=== PATIENT | female | born 1935 | race Caucasian/White ===

== ENCOUNTER → 2016-10-22 | Outpatient (REF) | payer MEDICARE, BC, MEDICAID ==
[~2016-10-22] MED LIST: *ANUSOI RE; /WARF25TA PO; ACET65TA PO; ANUSOL PR; ANUSOL TOP; ASPI81TA PO; ASPIRIN PO; ATOR1TAB21 PO; CALCIUM+VIT D PO; COLA100C2 PO; DONETAB5 PO; FERR325T PO; HALD5INJ2 IM; HALD5INJ2 IV; LOSA25TA8 PO; METFORMIN PO; MULTLIQ7 PO; NAME10TA PO; NAME28CA PO; NEXIUM PO; PROP1TAB29 PO; SENNSYP PO; SERO1TAB3 PO; SERT-141 PO; TEMOVATE TOP; TRAM50TA2; TRAM50TA2 OR; TYLE650T25 PO; VITA100072 PO; VYTO10TA5 OR; ZETI10TA PO; ZOCO40TA PO; [UNRECOGNIZED DRUG - OTHER] PO
[2016-10-22 08:30] LABS: BASO # 0.1 K/mm3 (0.0-0.2); EOS # 0.1 K/mm3 (0.0-0.50); EOS % 0.9 % (0.0-3.0); LARGE UNSTAINED CELL # 0.2 K/mm3 (0.0-0.4); LARGE UNSTAINED CELL % 1.6 % (0.0-4.0); LYMPH # 1.5 K/mm3 (1.5-4.5); LYMPH % 13.7 % (24.0-44.0); MEAN CORPUSCULAR HEMOGLOBIN 30.8 pg (27.0-33.0); MEAN CORPUSCULAR VOLUME 99.4 fl (80.0-96.0); MONO # 0.9 K/mm3 (0.0-0.8); MONO % 8.7 % (0.0-5.0); NEUTROPHILS # 7.3 K/mm3 (1.8-7.7); NEUTROPHILS % 74.1 % (36.0-66.0); PLATELET COUNT, AUTOMATED 198 k/mm3 (150-450); RED CELL DISTRIBUTION WIDTH 14.2 % (11.5-14.5); WHITE BLOOD COUNT 9.8 K/mm3 (4.0-10.0)
== END ==
LOC: SKLAB8 07:00
PROVIDERS: ATTEND Internal Medicine
DX: D64.9 Anemia, unspecified (principal); I10 Essential (primary) hypertension

== ENCOUNTER 2016-11-16 16:30 | Emergency (ER) | payer MEDICARE, MEDICAID ==
--- NOTE | 2016-11-16 17:39 | REP ---
Clinical: Acute headache. Comparison: 04/21/2016 . Findings: Age-related atrophy and microvascular ischemic changes are appreciated. The ventricles and sulci are symmetric. Chan-white differentiation is maintained. There is no evidence for acute intracranial hemorrhage, mass/mass effect, pathology or infarction. No extra-axial fluid collection. Calvarium is intact. Paranasal sinuses and mastoid air cells are clear. Impression: Age related atrophy and microvascular ischemic changes. No acute intracranial hemorrhage, infarction, or mass/mass effect. Signed by Jae Juares MD 11/16/2016 05:31 P
[2016-11-16] MEDS ORDERED: NAPROXEN 250 MG TAB As Ordered ONE (18:58)
[2016-11-16] MEDS ORDERED: ACETAMINOPHEN 325 MG TAB As Ordered ONE (18:58)
--- NOTE | 2016-11-16 20:07 | EDDOCDS ---
Nurse's Notes [facility] Name: Belen Rucker Age: 81 yrs Sex: Female : 1935 Arrival Date: 11/16/2016 Time: 16:30 Bed I Private MD: Eagle Lopez Diagnosis: Headache Presentation: 11/16 16:54 Presenting complaint: pt sent over from [facility] for a CT head without contrast and an EKG. dsf pt c/o a headache this afternoon Tylenol and tramadol given without any relief. pt has a HX of head bleed. This patient has no additional risk factors. Adult Sepsis Screening: The patient does not have new or worsening altered mentation. Patient's respiratory rate is less than 22. Systolic blood pressure is greater than 100. Patient has a qSOFA score of 0- Negative Sepsis Screen. Suicide/Homicide risk assessment- the patient denies having any suicidal and/or homicidal ideations and does not present with any other emotional, behavioral or mental health complaints. Status: Patient is not a services coordinator or dependent. Transition of care: patient was received from [facility]. 16:54 Acuity: PHUC Level 4 dsf 16:54 Method Of Arrival: Wheelchair dsf 16:59 Presenting complaint: pt has dementia and is unable to tell this resume writer r about her MARQUEZ, dsf pt is rambling on in room with caretaker. Triage Assessment: 16:54 Headache History: Other unable to assess if this is a change in previous MARQUEZ. General: dsf Appears distressed, Behavior is crying. Pain: Location: head. Neurological: Level of Consciousness is awake, confused. Cardiovascular: No deficits noted. Respiratory: No deficits noted. Derm: Skin is pink, warm & dry. 18:08 Pain: Unable to use pain scale. [email or web address] Historical: - Allergies: butorphanol tartrate; ESTROGENS; Lorazepam; Ramipril; - Home Meds: 1. tramadol 50 mg Oral tab 1 tab every 8 hours as needed (Last dose: Unknown) 2. trazodone 50 mg Oral tab 1 tab nightly (Last dose: 11/15/2016 21:20) 3. Vitamin D Oral 1,000 unit daily (Last dose: 11/16/2016 07:46) 4. Depakote 125 mg Oral TbEC 1 tab once daily (Last dose: 11/16/2016 07:46) 5. Depakote 250 mg Oral TbEC 1 tab nightly (Last dose: 11/15/2016 21:20) 6. escitalopram oxalate 10 mg oral tab 1 tab once daily (Last dose: 11/16/2016 07:46) 7. acetaminophen 325 mg Oral tab 2 tabs twice a day for Pain Control (Last dose: 11/16/2016 13:20) 8. acetaminophen 650 mg Rectal supp 1 suppository daily as needed for pain or elevated pain (Last dose: Unknown) 9. Milk of Magnesia 2400 mg/10 ml Oral 10 mL once daily as needed for constipation (Last dose: Unknown) 10. Vitamin B-12 1,000 mcg Oral tab 1000 mcg daily (Last dose: 11/16/2016 07:46) 11. losartan 25 mg oral tab 1 tab once daily (Last dose: 11/16/2016 07:46) 12. Colace 100 mg oral cap 1 cap once daily (Last dose: 11/16/2016 07:46) 13. Multiple Vitamins oral tab 1 tab daily (Last dose: 11/16/2016 07:46) - PMHx: Anxiety; Dementia; brain bleed; Osteoarthritis; Hypertension; Auditory/Visual Hallucinations; - PSHx: Hip Arthroplasty, Right; Carpal Tunnel Repair- Left; Hysterectomy; Bladder suspension; - Social history: Smoking status: Patient states was never smoker of tobacco. No barriers to communication noted, The patient speaks fluent Vietnamese, Speaks appropriately for age. - Family history: Not pertinent. - : The pt / caregiver states he / she is not on anticoagulants. Home medication list is obtained from the facility MAR. - Exposure Risk Screening:: None identified. Screenin:05 Screening information is obtained from prior medical records. Fall risk: At risk due to dsf prior history of falls, The following interventions are performed due to a positive Fall Risk Screen: Fall Risk is added to Special Handling on the patient Summary Screen. A Fall Risk Bracelet was applied to the patient. Side Rails are placed in the up position. A Call Spence is given with instruction to call for help when getting out of bed. Fall Alert bracelet is placed on the patient. Assistance ADL's: Requires assistance with meal preparation, this assistance is provided by residence staff, bathing, assistance is provided by residence staff, dressing, assistance is provided by residence staff, toileting, assistance is provided by residence staff, ambulation, assistance is provided by residence staff, housework, assistance is provided by residence staff, medication administration, assistance is provided by residence staff. Abuse/DV Screen: The patient / caregiver reports he/she is: not in a situation that causes fear, pain or injury. Nutritional screening: No deficits noted. home support is adequate. 18:58 Advance Directives: Currently, there is no health care proxy. dsf Assessment: 17:00 General: see triage nursing assessment . dsf 17:58 General: Appears in no apparent distress, Behavior is crying. Pain: Location: head. dsf Neurological: Level of Consciousness is awake, confused. Respiratory: Airway is patent Respiratory effort is even, unlabored, Respiratory pattern is regular, symmetrical. Derm: Skin is pink, warm & dry. 18:58 General: Appears in no apparent distress. Neurological: Level of Consciousness is dsf awake, confused. Cardiovascular: Capillary refill < 3 seconds. Respiratory: Airway is patent Respiratory effort is even, unlabored, Respiratory pattern is regular, symmetrical. Derm: Skin is pink, warm & dry. 20:01 Adult Sepsis Screening: The patient does not have new or worsening altered mentation. dsf Patient's respiratory rate is less than 22. Systolic blood pressure is greater than 100. Patient has a qSOFA score of 0- Negative Sepsis Screen. General: Appears in no apparent distress, Behavior is agitated. Neurological: Level of Consciousness is awake, confused. Cardiovascular: Capillary refill < 3 seconds. Respiratory: Airway is patent Respiratory effort is even, unlabored, Respiratory pattern is regular, symmetrical. Derm: Skin is pink, warm & dry. 20:04 General: pt agitates and will not let staff take VS . dsf Vital Signs: 16:32 BP 106 / 49; Pulse 86; Resp 18; Temp 97.9(O); Pulse Ox 97% on R/A; Weight 68.95 kg (R); ct3 Height 6 ft. 0 in. (182.88 cm) (R); 16:32 Body Mass Index 20.62 (68.95 kg, 182.88 cm) ct3 Vitals: 16:32 Log In Time: November 16, 2016 at 16:30. ct3 ED Course: 16:32 Patient visited by Malena Panchal PCA. ct3 16:32 Eagle Lopez MD is Private Physician. ct3 16:32 Patient moved to Waiting ct3 16:35 Patient moved to Pre RCE ct3 16:51 Aspen Galan,RN is Primary Nurse. dsf 16:51 Brittani Frederick, DORA is Primary Nurse. dsf 16:51 Patient moved to I dsf 16:56 Triage Initiated dsf 17:27 [facility] Payment Agreement was scanned into [employer] and attached to record. zo 17:58 Patient visited by Bere Sampson RN. dsf 17:58 Juliet Perez FNP is PHCP. le 18:02 CT Head Without Contrast Returned. EDMS 18:17 Patient visited by Juliet Perez FNP. le 18:17 Patient visited by Juliet Perez FNP. le 18:58 The patient / caregiver is instructed regarding the plan of care and ED course. dsf 18:58 EKG done. (by ED staff). Reviewed by Juliet MATA. ajs 18:58 No IV's were initiated during this patient's visit. No procedures done that require dsf assistance. 18:59 Patient visited by Pearl Mcgovern. ajs 19:58 Eagle Lopez MD is Referral Physician. le Administered Medications: 19:02 Drug: Naproxen 500 mg [naproxen 250 mg tablet (2 tabs)] Route: PO; ja5 19:03 Drug: Acetaminophen 975 mg [acetaminophen 325 mg tablet (3 tabs)] Route: PO; ja5 Order Results: Radiology Order: CT Head Without Contrast Test: CT Head Without Contrast REASON FOR EXAMINATION: headache; Clinical: Acute headache.; ; Comparison: 04/21/2016 .; ; Findings:; Age-related atrophy and microvascular ischemic changes are appreciated. The; ventricles and sulci are symmetric. Chan-white differentiation is maintained.; There is no evidence for acute intracranial hemorrhage, mass/mass effect,; pathology or infarction. No extra-axial fluid collection. Calvarium is intact.; Paranasal sinuses and mastoid air cells are clear.; ; Impression:; Age related atrophy and microvascular ischemic changes.; No acute intracranial hemorrhage, infarction, or mass/mass effect.; ; ; Signed by; Jae Juares MD 11/16/2016 05:31 P; Outcome: 18:58 Discharge Assessment: Patient awake, alert and oriented x 3. No cognitive and/or dsf functional deficits noted. Patient verbalized understanding of disposition instructions. patient administered narcotics - no. The following High Risk Discharge criteria are identified: None. Discharged to jail. Report called to Alyson nurse on 8 th floor [facility]. Condition: stable. Discharge instructions given to jail, Instructed on discharge instructions, follow up and referral plans. Demonstrated understanding of instructions, Pt was receptive of discharge instructions/ teaching. CT Study completed. Property sent home with patient. 19:58 Discharge ordered by Provider. le 20:06 Patient left the ED. dsf Signatures: Dispatcher [employer] EDMS Tracy Springer Lisa, TARGET TRIMMER TARGET TRIMMER Brittani Parks, RN RN [email or web address] Malena Panchal, ESTIMATOR PRINTING ESTIMATOR PRINTING ct3 Bere SampsonRN RN dsPearl Williamson Jessica,RN RN ja5 Corrections: (The following items were deleted from the chart) 16:34 16:32 BP 106 / 49; Pulse 86bpm; Resp 18bpm; Pulse Ox 97% RA; Temp 97.9F Oral; ct3 ct3 16:35 16:32 BP 106 / 49; Pulse 86bpm; Resp 18bpm; Pulse Ox 97% RA; Temp 97.9F Oral; 68.95 kg ct3 Reported; ct3 MTDD
--- NOTE | 2016-11-16 20:07 | EDDOCDS ---
Physician Documentation [facility] Name: Belen Rucker Age: 81 yrs Sex: Female : 1935 Arrival Date: 11/16/2016 Time: 16:30 Bed I Private MD: Eagle Lopez Disposition: 11/16/16 19:58 Discharged to Home/Self Care. Impression: Headache. - Condition is Stable. - Discharge Instructions: General Headache Without Cause. - Medication Reconciliation, Local Pharmacy Hours form. - Follow up: Eagle Lopez MD; When: As needed; Reason: Recheck today's complaints, Continuance of care. - Problem is new. - Symptoms are resolved. - Notes: Keep hydrated Return to the ED for any further concerns Historical: - Allergies: butorphanol tartrate; ESTROGENS; Lorazepam; Ramipril; - Home Meds: 1. tramadol 50 mg Oral tab 1 tab every 8 hours as needed (Last dose: Unknown) 2. trazodone 50 mg Oral tab 1 tab nightly (Last dose: 11/15/2016 21:20) 3. Vitamin D Oral 1,000 unit daily (Last dose: 11/16/2016 07:46) 4. Depakote 125 mg Oral TbEC 1 tab once daily (Last dose: 11/16/2016 07:46) 5. Depakote 250 mg Oral TbEC 1 tab nightly (Last dose: 11/15/2016 21:20) 6. escitalopram oxalate 10 mg oral tab 1 tab once daily (Last dose: 11/16/2016 07:46) 7. acetaminophen 325 mg Oral tab 2 tabs twice a day for Pain Control (Last dose: 11/16/2016 13:20) 8. acetaminophen 650 mg Rectal supp 1 suppository daily as needed for pain or elevated pain (Last dose: Unknown) 9. Milk of Magnesia 2400 mg/10 ml Oral 10 mL once daily as needed for constipation (Last dose: Unknown) 10. Vitamin B-12 1,000 mcg Oral tab 1000 mcg daily (Last dose: 11/16/2016 07:46) 11. losartan 25 mg oral tab 1 tab once daily (Last dose: 11/16/2016 07:46) 12. Colace 100 mg oral cap 1 cap once daily (Last dose: 11/16/2016 07:46) 13. Multiple Vitamins oral tab 1 tab daily (Last dose: 11/16/2016 07:46) - PMHx: Anxiety; Dementia; brain bleed; Osteoarthritis; Hypertension; Auditory/Visual Hallucinations; - PSHx: Hip Arthroplasty, Right; Carpal Tunnel Repair- Left; Hysterectomy; Bladder suspension; - Social history: Smoking status: Patient states was never smoker of tobacco. No barriers to communication noted, The patient speaks fluent Occitan, Speaks appropriately for age. - Family history: Not pertinent. - : The pt / caregiver states he / she is not on anticoagulants. Home medication list is obtained from the facility DEC. - Exposure Risk Screening:: None identified. Vital Signs: 11/16 16:32 BP 106 / 49; Pulse 86; Resp 18; Temp 97.9(O); Pulse Ox 97% on R/A; Weight 68.95 kg / ct3 152.01 lbs (R); Height 6 ft. 0 in. (182.88 cm) (R); 16:32 Body Mass Index 20.62 (68.95 kg, 182.88 cm) ct3 MDM: 17:15 CT Head Without Contrast Ordered. EDMS 17:15 ECG WITH READING ER PHYS+CARDIAG ordered. EDMS 17:27 [facility] Payment Agreement was scanned into [employer] and attached to record. zo 17:59 Misc. Nursing Order ordered. le 18:54 Acetaminophen Tablet 975 mg PO once ordered. le 18:54 Financial registration complete. zo 18:55 Naproxen 500 mg PO once; administer with food or milk ordered. le Administered Medications: 19:02 Drug: Naproxen 500 mg [naproxen 250 mg tablet (2 tabs)] Route: PO; ja5 19:03 Drug: Acetaminophen 975 mg [acetaminophen 325 mg tablet (3 tabs)] Route: PO; ja5 Signatures: Dispatcher [employer] EDMS Tracy Springer Lisa, ESPERANZA MUFFLE WORKER Brittani Parks RN RN Bere Montaño RN RN dsf Anderson, Jessica RN ja5 The chart was reviewed and I authenticate all verbal orders and agree with the evaluation and treatment provided.Attachments: 17:27 [facility] Payment Agreement zo MTDD
--- NOTE | 2016-11-17 08:09 | ECGEPIP ---
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
--- NOTE | 2016-11-18 21:07 | EDDOCDS ---
Physician Documentation [facility] Name: Belen Rucker Age: 81 yrs Sex: Female : 1935 Arrival Date: 11/16/2016 Time: 16:30 Bed I Private MD: Eagle Lopez Disposition: 11/16/16 19:58 Discharged to Home/Self Care. Impression: Headache. - Condition is Stable. - Discharge Instructions: General Headache Without Cause. - Medication Reconciliation, Local Pharmacy Hours form. - Follow up: Eagle Lopez MD; When: As needed; Reason: Recheck today's complaints, Continuance of care. - Problem is new. - Symptoms are resolved. - Notes: Keep hydrated Return to the ED for any further concerns Historical: - Allergies: butorphanol tartrate; ESTROGENS; Lorazepam; Ramipril; - Home Meds: 1. tramadol 50 mg Oral tab 1 tab every 8 hours as needed (Last dose: Unknown) 2. trazodone 50 mg Oral tab 1 tab nightly (Last dose: 11/15/2016 21:20) 3. Vitamin D Oral 1,000 unit daily (Last dose: 11/16/2016 07:46) 4. Depakote 125 mg Oral TbEC 1 tab once daily (Last dose: 11/16/2016 07:46) 5. Depakote 250 mg Oral TbEC 1 tab nightly (Last dose: 11/15/2016 21:20) 6. escitalopram oxalate 10 mg oral tab 1 tab once daily (Last dose: 11/16/2016 07:46) 7. acetaminophen 325 mg Oral tab 2 tabs twice a day for Pain Control (Last dose: 11/16/2016 13:20) 8. acetaminophen 650 mg Rectal supp 1 suppository daily as needed for pain or elevated pain (Last dose: Unknown) 9. Milk of Magnesia 2400 mg/10 ml Oral 10 mL once daily as needed for constipation (Last dose: Unknown) 10. Vitamin B-12 1,000 mcg Oral tab 1000 mcg daily (Last dose: 11/16/2016 07:46) 11. losartan 25 mg oral tab 1 tab once daily (Last dose: 11/16/2016 07:46) 12. Colace 100 mg oral cap 1 cap once daily (Last dose: 11/16/2016 07:46) 13. Multiple Vitamins oral tab 1 tab daily (Last dose: 11/16/2016 07:46) - PMHx: Anxiety; Dementia; brain bleed; Osteoarthritis; Hypertension; Auditory/Visual Hallucinations; - PSHx: Hip Arthroplasty, Right; Carpal Tunnel Repair- Left; Hysterectomy; Bladder suspension; - Social history: Smoking status: Patient states was never smoker of tobacco. No barriers to communication noted, The patient speaks fluent Sinhala, Speaks appropriately for age. - Family history: Not pertinent. - : The pt / caregiver states he / she is not on anticoagulants. Home medication list is obtained from the facility DEC. - Exposure Risk Screening:: None identified. Vital Signs: 11/16 16:32 BP 106 / 49; Pulse 86; Resp 18; Temp 97.9(O); Pulse Ox 97% on R/A; Weight 68.95 kg / ct3 152.01 lbs (R); Height 6 ft. 0 in. (182.88 cm) (R); 16:32 Body Mass Index 20.62 (68.95 kg, 182.88 cm) ct3 MDM: 17:15 CT Head Without Contrast Ordered. EDMS 17:15 ECG WITH READING ER PHYS+CARDIAG ordered. EDMS 17:27 [facility] Payment Agreement was scanned into [employer] and attached to record. zo 17:59 Misc. Nursing Order ordered. le 18:54 Acetaminophen Tablet 975 mg PO once ordered. le 18:54 Financial registration complete. zo 18:55 Naproxen 500 mg PO once; administer with food or milk ordered. le 11/17 10:38 T-Sheet-- Draft Copy was scanned into [employer] and attached to record. gb 10:39 ECG/EKG was scanned into [employer] and attached to record. gb Administered Medications: 11/16 19:02 Drug: Naproxen 500 mg [naproxen 250 mg tablet (2 tabs)] Route: PO; ja5 19:03 Drug: Acetaminophen 975 mg [acetaminophen 325 mg tablet (3 tabs)] Route: PO; ja5 Signatures: Dispatcher [employer] EDMS Donya Earl, Mathew Reg gb Gian, Artieann Juliet Wayne, Brittani Stuton RN RN jcBere Young RN RN dsf Anderson, Jessica RN ja5 The chart was reviewed and I authenticate all verbal orders and agree with the evaluation and treatment provided.Attachments: 17:27 [facility] Payment Agreement zo 11/17 10:38 T-Sheet-- Draft Copy gb 10:39 ECG/EKG gb Chart Complete MTDD
--- NOTE | 2016-11-18 21:07 | EDDOCDS ---
Nurse's Notes [facility] Name: Chepe Zepeda Age: 81 yrs Sex: Female : 1935 Arrival Date: 11/16/2016 Time: 16:30 Bed I Private MD: Eagle Lopez Diagnosis: Headache Presentation: 11/16 16:54 Presenting complaint: pt sent over from [facility] for a CT head without contrast and an EKG. dsf pt c/o a headache this afternoon Tylenol and tramadol given without any relief. pt has a HX of head bleed. This patient has no additional risk factors. Adult Sepsis Screening: The patient does not have new or worsening altered mentation. Patient's respiratory rate is less than 22. Systolic blood pressure is greater than 100. Patient has a qSOFA score of 0- Negative Sepsis Screen. Suicide/Homicide risk assessment- the patient denies having any suicidal and/or homicidal ideations and does not present with any other emotional, behavioral or mental health complaints. Status: Patient is not a service center coordinator or dependent. Transition of care: patient was received from [facility]. 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 Triage Assessment: 16:54 Headache History: Other unable to assess if this is a change in previous MARQUEZ. General: dsf Appears distressed, Behavior is crying. Pain: Location: head. Neurological: Level of Consciousness is awake, confused. Cardiovascular: No deficits noted. Respiratory: No deficits noted. Derm: Skin is pink, warm & dry. 18:08 Pain: Unable to use pain scale. [email or web address] Historical: - Allergies: butorphanol tartrate; ESTROGENS; Lorazepam; Ramipril; - Home Meds: 1. tramadol 50 mg Oral tab 1 tab every 8 hours as needed (Last dose: Unknown) 2. trazodone 50 mg Oral tab 1 tab nightly (Last dose: 11/15/2016 21:20) 3. Vitamin D Oral 1,000 unit daily (Last dose: 11/16/2016 07:46) 4. Depakote 125 mg Oral TbEC 1 tab once daily (Last dose: 11/16/2016 07:46) 5. Depakote 250 mg Oral TbEC 1 tab nightly (Last dose: 11/15/2016 21:20) 6. escitalopram oxalate 10 mg oral tab 1 tab once daily (Last dose: 11/16/2016 07:46) 7. acetaminophen 325 mg Oral tab 2 tabs twice a day for Pain Control (Last dose: 11/16/2016 13:20) 8. acetaminophen 650 mg Rectal supp 1 suppository daily as needed for pain or elevated pain (Last dose: Unknown) 9. Milk of Magnesia 2400 mg/10 ml Oral 10 mL once daily as needed for constipation (Last dose: Unknown) 10. Vitamin B-12 1,000 mcg Oral tab 1000 mcg daily (Last dose: 11/16/2016 07:46) 11. losartan 25 mg oral tab 1 tab once daily (Last dose: 11/16/2016 07:46) 12. Colace 100 mg oral cap 1 cap once daily (Last dose: 11/16/2016 07:46) 13. Multiple Vitamins oral tab 1 tab daily (Last dose: 11/16/2016 07:46) - PMHx: Anxiety; Dementia; brain bleed; Osteoarthritis; Hypertension; Auditory/Visual Hallucinations; - PSHx: Hip Arthroplasty, Right; Carpal Tunnel Repair- Left; Hysterectomy; Bladder suspension; - Social history: Smoking status: Patient states was never smoker of tobacco. No barriers to communication noted, The patient speaks fluent Serbian, Speaks appropriately for age. - Family history: Not pertinent. - : The pt / caregiver states he / she is not on anticoagulants. Home medication list is obtained from the facility MAR. - Exposure Risk Screening:: None identified. Screenin:05 Screening information is obtained from prior medical records. Fall risk: At risk due to dsf prior history of falls, The following interventions are performed due to a positive Fall Risk Screen: Fall Risk is added to Special Handling on the patient Summary Screen. A Fall Risk Bracelet was applied to the patient. Side Rails are placed in the up position. A Call Spence is given with instruction to call for help when getting out of bed. Fall Alert bracelet is placed on the patient. Assistance ADL's: Requires assistance with meal preparation, this assistance is provided by residence staff, bathing, assistance is provided by residence staff, dressing, assistance is provided by residence staff, toileting, assistance is provided by residence staff, ambulation, assistance is provided by residence staff, housework, assistance is provided by residence staff, medication administration, assistance is provided by residence staff. Abuse/DV Screen: The patient / caregiver reports he/she is: not in a situation that causes fear, pain or injury. Nutritional screening: No deficits noted. home support is adequate. 18:58 Advance Directives: Currently, there is no health care proxy. dsf Assessment: 17:00 General: see triage nursing assessment . dsf 17:58 General: Appears in no apparent distress, Behavior is crying. Pain: Location: head. dsf Neurological: Level of Consciousness is awake, confused. Respiratory: Airway is patent Respiratory effort is even, unlabored, Respiratory pattern is regular, symmetrical. Derm: Skin is pink, warm & dry. 18:58 General: Appears in no apparent distress. Neurological: Level of Consciousness is dsf awake, confused. Cardiovascular: Capillary refill < 3 seconds. Respiratory: Airway is patent Respiratory effort is even, unlabored, Respiratory pattern is regular, symmetrical. Derm: Skin is pink, warm & dry. 20:01 Adult Sepsis Screening: The patient does not have new or worsening altered mentation. dsf Patient's respiratory rate is less than 22. Systolic blood pressure is greater than 100. Patient has a qSOFA score of 0- Negative Sepsis Screen. General: Appears in no apparent distress, Behavior is agitated. Neurological: Level of Consciousness is awake, confused. Cardiovascular: Capillary refill < 3 seconds. Respiratory: Airway is patent Respiratory effort is even, unlabored, Respiratory pattern is regular, symmetrical. Derm: Skin is pink, warm & dry. 20:04 General: pt agitates and will not let staff take VS . dsf Vital Signs: 16:32 BP 106 / 49; Pulse 86; Resp 18; Temp 97.9(O); Pulse Ox 97% on R/A; Weight 68.95 kg (R); ct3 Height 6 ft. 0 in. (182.88 cm) (R); 16:32 Body Mass Index 20.62 (68.95 kg, 182.88 cm) ct3 Vitals: 16:32 Log In Time: November 16, 2016 at 16:30. ct3 ED Course: 16:32 Patient visited by Malena Panchal PCA. ct3 16:32 Eagle Lopez MD is Private Physician. ct3 16:32 Patient moved to Waiting ct3 16:35 Patient moved to Pre RCE ct3 16:51 Aspen Galan,RN is Primary Nurse. dsf 16:51 Brittani Frederick, DORA is Primary Nurse. dsf 16:51 Patient moved to I dsf 16:56 Triage Initiated dsf 17:27 [facility] Payment Agreement was scanned into [employer] and attached to record. zo 17:58 Patient visited by Bere Sampson RN. dsf 17:58 Juliet Perez FNP is PHCP. le 18:02 CT Head Without Contrast Returned. EDMS 18:17 Patient visited by Juliet Perez FNP. le 18:17 Patient visited by Juliet Perez FNP. le 18:58 The patient / caregiver is instructed regarding the plan of care and ED course. dsf 18:58 EKG done. (by ED staff). Reviewed by Juliet MATA. ajs 18:58 No IV's were initiated during this patient's visit. No procedures done that require dsf assistance. 18:59 Patient visited by Pearl Mcgovern. ajs 19:58 Eagle Lopez MD is Referral Physician. le 14 08:40 EKG-ADULT Returned. EDMS 10:38 T-Sheet-- Draft Copy was scanned into [employer] and attached to record. gb 10:39 ECG/EKG was scanned into [employer] and attached to record. gb Administered Medications: 11/16 19:02 Drug: Naproxen 500 mg [naproxen 250 mg tablet (2 tabs)] Route: PO; ja5 19:03 Drug: Acetaminophen 975 mg [acetaminophen 325 mg tablet (3 tabs)] Route: PO; ja5 Order Results: Radiology Order: CT Head Without Contrast Test: CT Head Without Contrast REASON FOR EXAMINATION: headache; Clinical: Acute headache.; ; Comparison: 04/21/2016 .; ; Findings:; Age-related atrophy and microvascular ischemic changes are appreciated. The; ventricles and sulci are symmetric. Chan-white differentiation is maintained.; There is no evidence for acute intracranial hemorrhage, mass/mass effect,; pathology or infarction. No extra-axial fluid collection. 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 No cognitive and/or dsf functional deficits noted. Patient verbalized understanding of disposition instructions. patient administered narcotics - no. The following High Risk Discharge criteria are identified: None. Discharged to half-way. Report called to Alyson nurse on 8 th floor [facility]. Condition: stable. Discharge instructions given to half-way, Instructed on discharge instructions, follow up and referral plans. Demonstrated understanding of instructions, Pt was receptive of discharge instructions/ teaching. CT Study completed. Property sent home with patient. 19:58 Discharge ordered by Provider. le 20:06 Patient left the ED. dsf Signatures: Dispatcher [employer] EDMS Donya Earl, Tracy De Los Santos Lisa, CLINICAL PSYCHOLOGIST CLINICAL PSYCHOLOGIST Brittani Parks, RN RN jc4 Malena Panchal, DISTRIBUTION DESIGNER DISTRIBUTION DESIGNER ct3 Bere SampsonRN RN dsf Pearl Mcgovern Jessica,RN RN ja5 Corrections: (The following items were deleted from the chart) 16:34 16:32 BP 106 / 49; Pulse 86bpm; Resp 18bpm; Pulse Ox 97% RA; Temp 97.9F Oral; ct3 ct3 16:35 16:32 BP 106 / 49; Pulse 86bpm; Resp 18bpm; Pulse Ox 97% RA; Temp 97.9F Oral; 68.95 kg ct3 Reported; ct3 Chart Complete MTDD
--- NOTE | 2016-11-18 21:07 | EDDOCDS ---
Physician Documentation [facility] Name: Belen Rucker Age: 81 yrs Sex: Female : 1935 Arrival Date: 11/16/2016 Time: 16:30 Bed I Private MD: Eagle Lopez Disposition: 11/16/16 19:58 Discharged to Home/Self Care. Impression: Headache. - Condition is Stable. - Discharge Instructions: General Headache Without Cause. - Medication Reconciliation, Local Pharmacy Hours form. - Follow up: Eagle Lopez MD; When: As needed; Reason: Recheck today's complaints, Continuance of care. - Problem is new. - Symptoms are resolved. - Notes: Keep hydrated Return to the ED for any further concerns Historical: - Allergies: butorphanol tartrate; ESTROGENS; Lorazepam; Ramipril; - Home Meds: 1. tramadol 50 mg Oral tab 1 tab every 8 hours as needed (Last dose: Unknown) 2. trazodone 50 mg Oral tab 1 tab nightly (Last dose: 11/15/2016 21:20) 3. Vitamin D Oral 1,000 unit daily (Last dose: 11/16/2016 07:46) 4. Depakote 125 mg Oral TbEC 1 tab once daily (Last dose: 11/16/2016 07:46) 5. Depakote 250 mg Oral TbEC 1 tab nightly (Last dose: 11/15/2016 21:20) 6. escitalopram oxalate 10 mg oral tab 1 tab once daily (Last dose: 11/16/2016 07:46) 7. acetaminophen 325 mg Oral tab 2 tabs twice a day for Pain Control (Last dose: 11/16/2016 13:20) 8. acetaminophen 650 mg Rectal supp 1 suppository daily as needed for pain or elevated pain (Last dose: Unknown) 9. Milk of Magnesia 2400 mg/10 ml Oral 10 mL once daily as needed for constipation (Last dose: Unknown) 10. Vitamin B-12 1,000 mcg Oral tab 1000 mcg daily (Last dose: 11/16/2016 07:46) 11. losartan 25 mg oral tab 1 tab once daily (Last dose: 11/16/2016 07:46) 12. Colace 100 mg oral cap 1 cap once daily (Last dose: 11/16/2016 07:46) 13. Multiple Vitamins oral tab 1 tab daily (Last dose: 11/16/2016 07:46) - PMHx: Anxiety; Dementia; brain bleed; Osteoarthritis; Hypertension; Auditory/Visual Hallucinations; - PSHx: Hip Arthroplasty, Right; Carpal Tunnel Repair- Left; Hysterectomy; Bladder suspension; - Social history: Smoking status: Patient states was never smoker of tobacco. No barriers to communication noted, The patient speaks fluent Azeri, Speaks appropriately for age. - Family history: Not pertinent. - : The pt / caregiver states he / she is not on anticoagulants. Home medication list is obtained from the facility DEC. - Exposure Risk Screening:: None identified. Vital Signs: 11/16 16:32 BP 106 / 49; Pulse 86; Resp 18; Temp 97.9(O); Pulse Ox 97% on R/A; Weight 68.95 kg / ct3 152.01 lbs (R); Height 6 ft. 0 in. (182.88 cm) (R); 16:32 Body Mass Index 20.62 (68.95 kg, 182.88 cm) ct3 MDM: 17:15 CT Head Without Contrast Ordered. EDMS 17:15 ECG WITH READING ER PHYS+CARDIAG ordered. EDMS 17:27 [facility] Payment Agreement was scanned into [employer] and attached to record. zo 17:59 Misc. Nursing Order ordered. le 18:54 Acetaminophen Tablet 975 mg PO once ordered. le 18:54 Financial registration complete. zo 18:55 Naproxen 500 mg PO once; administer with food or milk ordered. le 11/17 10:38 T-Sheet-- Draft Copy was scanned into [employer] and attached to record. gb 10:39 ECG/EKG was scanned into [employer] and attached to record. gb Administered Medications: 11/16 19:02 Drug: Naproxen 500 mg [naproxen 250 mg tablet (2 tabs)] Route: PO; ja5 19:03 Drug: Acetaminophen 975 mg [acetaminophen 325 mg tablet (3 tabs)] Route: PO; ja5 Signatures: Dispatcher [employer] EDMS Donya Earl, Mathew Reg gb Gian, Artieann Juliet Wayne, Brittani Sutton RN RN jcBere Young RN RN dsf Anderson, Jessica RN ja5 The chart was reviewed and I authenticate all verbal orders and agree with the evaluation and treatment provided.Attachments: 17:27 [facility] Payment Agreement zo 11/17 10:38 T-Sheet-- Draft Copy gb 10:39 ECG/EKG gb Chart Complete MTDD
== END 2016-11-16 20:06 | disposition home or self-care (01) ==
LOC: M ED 16:30
DX: R51 Headache (principal); I10 Essential (primary) hypertension; F41.9 Anxiety disorder, unspecified; F03.90 Unspecified dementia, unspecified severity, without behavioral disturbance, psychotic disturbance, mood disturbance, and anxiety; M19.90 Unspecified osteoarthritis, unspecified site; R44.0 Auditory hallucinations; R44.1 Visual hallucinations; Z79.899 Other long term (current) drug therapy; Z88.5 Allergy status to narcotic agent; Z88.8 Allergy status to other drugs, medicaments and biological substances

== ENCOUNTER → 2016-11-25 | Outpatient (REF) | payer MEDICARE, MEDICAID | LOC: M LAB 01:21 | PROVIDERS: ATTEND Internal Medicine | DX: I95.9 Hypotension, unspecified (principal) ==

== ENCOUNTER → 2016-11-27 | Outpatient (REF) | payer MEDICARE, MEDICAID ==
[2016-11-27 16:13] LABS: CALCIUM LEVEL 8.8 MG/DL (8.8-10.2); CREATININE FOR GFR 1.02 MG/DL (0.55-1.02); GLOMERULAR FILTRATION RATE 55.4 (>32); MAGNESIUM LEVEL 2.4 MG/DL (1.8-2.4); POTASSIUM SERUM 4.9 MEQ/L (3.5-5.1)
== END ==
LOC: SKLAB8 08:00
PROVIDERS: ATTEND Internal Medicine
DX: I10 Essential (primary) hypertension (principal)

== ENCOUNTER → 2016-12-01 | Outpatient (REF) | payer MEDICARE, MEDICAID ==
[~2016-12-01] MED LIST changes: -SERT-141 PO; +SERT50TA PO
--- NOTE | 2016-12-01 22:14 | ECGEPIP ---
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
== END ==
LOC: SKLAB8 08:00
PROVIDERS: ATTEND Internal Medicine
DX: I10 Essential (primary) hypertension (principal); D64.9 Anemia, unspecified

== ENCOUNTER → 2016-12-08 | Outpatient (REF) | payer MEDICARE, MEDICAID ==
--- NOTE | 2016-12-08 16:56 | ECGEPIP ---
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
== END ==
LOC: SKLAB8 08:00
PROVIDERS: ATTEND Internal Medicine
DX: I10 Essential (primary) hypertension (principal)

== ENCOUNTER → 2016-12-09 | Outpatient (REF) | payer MEDICARE, MEDICAID | LOC: SKLAB8 08:00 | PROVIDERS: ATTEND Internal Medicine | DX: Z11.59 Encounter for screening for other viral diseases (principal) ==

== ENCOUNTER → 2016-12-17 | Outpatient (REF) | payer MEDICARE, MEDICAID ==
[2016-12-17 10:51] LABS: BASO % 0.6 % (0.0-1.0); EOS # 0.1 K/mm3 (0.0-0.50); EOS % 1.1 % (0.0-3.0); LARGE UNSTAINED CELL # 0.1 K/mm3 (0.0-0.4); LARGE UNSTAINED CELL % 1.8 % (0.0-4.0); LYMPH # 1.8 K/mm3 (1.5-4.5); LYMPH % 23.3 % (24.0-44.0); MEAN CORPUSCULAR HEMOGLOBIN 31.8 pg (27.0-33.0); MEAN CORPUSCULAR HGB CONC 32.5 g/dl (32.0-36.5); MEAN CORPUSCULAR VOLUME 97.7 fl (80.0-96.0); MONO # 0.5 K/mm3 (0.0-0.8); MONO % 7.3 % (0.0-5.0); NEUTROPHILS # 4.7 K/mm3 (1.8-7.7); NEUTROPHILS % 65.9 % (36.0-66.0); PLATELET COUNT, AUTOMATED 275 k/mm3 (150-450); RED CELL DISTRIBUTION WIDTH 12.9 % (11.5-14.5); WHITE BLOOD COUNT 7.1 K/mm3 (4.0-10.0)
== END ==
LOC: SKLAB8 08:00
PROVIDERS: ATTEND Internal Medicine
DX: I10 Essential (primary) hypertension (principal)

== ENCOUNTER → 2017-01-21 | Outpatient (REF) | payer MEDICARE, MEDICAID ==
[2017-01-21 08:31] LABS: BASO % 0.8 % (0.0-1.0); EOS # 0.1 K/mm3 (0.0-0.50); EOS % 1.7 % (0.0-3.0); LARGE UNSTAINED CELL # 0.2 K/mm3 (0.0-0.4); LARGE UNSTAINED CELL % 2.7 % (0.0-4.0); LYMPH # 1.7 K/mm3 (1.5-4.5); LYMPH % 28.1 % (24.0-44.0); MEAN CORPUSCULAR HEMOGLOBIN 31.2 pg (27.0-33.0); MEAN CORPUSCULAR HGB CONC 31.7 g/dl (32.0-36.5); MEAN CORPUSCULAR VOLUME 98.4 fl (80.0-96.0); MONO # 0.5 K/mm3 (0.0-0.8); MONO % 9.1 % (0.0-5.0); NEUTROPHILS # 3.1 K/mm3 (1.8-7.7); NEUTROPHILS % 57.6 % (36.0-66.0); PLATELET COUNT, AUTOMATED 229 k/mm3 (150-450); WHITE BLOOD COUNT 5.4 K/mm3 (4.0-10.0)
== END ==
LOC: SKLAB8 07:00
PROVIDERS: ATTEND Internal Medicine
DX: D64.9 Anemia, unspecified (principal); I10 Essential (primary) hypertension

== ENCOUNTER → 2017-02-18 | Outpatient (REF) | payer MEDICARE, MEDICAID ==
[2017-02-18 09:07] LABS: BASO % 0.6 % (0.0-1.0); EOS # 0.1 K/mm3 (0.0-0.50); EOS % 1.4 % (0.0-3.0); LARGE UNSTAINED CELL # 0.1 K/mm3 (0.0-0.4); LARGE UNSTAINED CELL % 2.2 % (0.0-4.0); LYMPH # 1.6 K/mm3 (1.5-4.5); LYMPH % 23.7 % (24.0-44.0); MEAN CORPUSCULAR HGB CONC 32.5 g/dl (32.0-36.5); MEAN CORPUSCULAR VOLUME 98.5 fl (80.0-96.0); MONO # 0.5 K/mm3 (0.0-0.8); MONO % 8.5 % (0.0-5.0); NEUTROPHILS # 3.9 K/mm3 (1.8-7.7); NEUTROPHILS % 63.5 % (36.0-66.0); PLATELET COUNT, AUTOMATED 222 k/mm3 (150-450); RED CELL DISTRIBUTION WIDTH 13.2 % (11.5-14.5); WHITE BLOOD COUNT 6.1 K/mm3 (4.0-10.0)
== END ==
LOC: SKLAB8 08:00
PROVIDERS: ATTEND Internal Medicine
DX: I10 Essential (primary) hypertension (principal); D64.9 Anemia, unspecified

== ENCOUNTER → 2017-03-18 | Outpatient (REF) | payer MEDICARE, MEDICAID ==
[2017-03-18 10:31] LABS: BASO % 0.7 % (0.0-1.0); EOS # 0.1 K/mm3 (0.0-0.50); LARGE UNSTAINED CELL # 0.1 K/mm3 (0.0-0.4); LARGE UNSTAINED CELL % 1.7 % (0.0-4.0); LYMPH # 1.4 K/mm3 (1.5-4.5); MEAN CORPUSCULAR HEMOGLOBIN 32.1 pg (27.0-33.0); MEAN CORPUSCULAR HGB CONC 32.5 g/dl (32.0-36.5); MEAN CORPUSCULAR VOLUME 98.6 fl (80.0-96.0); MONO # 0.6 K/mm3 (0.0-0.8); MONO % 9.2 % (0.0-5.0); NEUTROPHILS # 4.2 K/mm3 (1.8-7.7); NEUTROPHILS % 66.4 % (36.0-66.0); PLATELET COUNT, AUTOMATED 261 k/mm3 (150-450); RED CELL DISTRIBUTION WIDTH 13.3 % (11.5-14.5); WHITE BLOOD COUNT 6.4 K/mm3 (4.0-10.0)
== END ==
LOC: SKLAB8 07:00
PROVIDERS: ATTEND Internal Medicine
DX: D64.9 Anemia, unspecified (principal)

== ENCOUNTER → 2017-04-22 | Outpatient (REF) | payer MEDICARE, MEDICAID ==
[2017-04-22 08:15] LABS: BASO % 0.5 % (0.0-1.0); EOS # 0.2 K/mm3 (0.0-0.50); EOS % 3.1 % (0.0-3.0); LARGE UNSTAINED CELL # 0.2 K/mm3 (0.0-0.4); LARGE UNSTAINED CELL % 3.3 % (0.0-4.0); LYMPH # 1.7 K/mm3 (1.5-4.5); LYMPH % 30.2 % (24.0-44.0); MEAN CORPUSCULAR HEMOGLOBIN 32.3 pg (27.0-33.0); MEAN CORPUSCULAR HGB CONC 32.7 g/dl (32.0-36.5); MEAN CORPUSCULAR VOLUME 98.8 fl (80.0-96.0); MONO # 0.6 K/mm3 (0.0-0.8); MONO % 10.7 % (0.0-5.0); NEUTROPHILS # 2.7 K/mm3 (1.8-7.7); NEUTROPHILS % 52.1 % (36.0-66.0); PLATELET COUNT, AUTOMATED 207 k/mm3 (150-450); RED CELL DISTRIBUTION WIDTH 12.9 % (11.5-14.5); WHITE BLOOD COUNT 5.1 K/mm3 (4.0-10.0)
== END ==
LOC: SKLAB8 04-22 07:00
PROVIDERS: ATTEND Internal Medicine
DX: F91.9 Conduct disorder, unspecified (principal); F22 Delusional disorders

== ENCOUNTER → 2017-05-20 | Outpatient (REF) | payer MEDICARE, MEDICAID ==
[2017-05-20 09:29] LABS: ANION GAP 10 MEQ/L (8-16); BLOOD UREA NITROGEN 18 MG/DL (7-18); CALCIUM LEVEL 9.5 MG/DL (8.8-10.2); CARBON DIOXIDE LEVEL 27 MEQ/L (21-32); CHLORIDE LEVEL 106 MEQ/L (98-107); CREATININE FOR GFR 0.74 MG/DL (0.55-1.02); GLOMERULAR FILTRATION RATE > 60.0 (>32); GLUCOSE, FASTING 100 MG/DL (83-110); POTASSIUM SERUM 4.6 MEQ/L (3.5-5.1); SODIUM LEVEL 143 MEQ/L (136-145)
== END ==
LOC: SKLAB8 07:00
PROVIDERS: ATTEND Internal Medicine
DX: I10 Essential (primary) hypertension (principal)

== ENCOUNTER → 2017-06-28 | Outpatient (REF) | payer MEDICARE, MEDICAID ==
[2017-06-28 21:33] LABS: CALCIUM OXALATE CRYSTALS SMALL
== END ==
LOC: SKLAB8 08:00
PROVIDERS: ATTEND Internal Medicine
DX: R10.819 Abdominal tenderness, unspecified site (principal)

== ENCOUNTER → 2017-07-26 | Outpatient (REF) | payer MEDICARE, MEDICAID ==
--- NOTE | 2017-07-26 15:19 | REP ---
AP view of the pelvis: Single view. History: Groin pain on the left. Comparison study May 25, 2016. Findings: The right hip arthroplasty is seen in place. There is moderate left hip osteoarthritis with joint space narrowing, sclerosis and osteophyte formation superiorly. Femoral head is smooth and rounded. Periarticular soft tissues are unremarkable. There is an artifact projecting lateral to the iliac crest on the left. Visualized bowel gas pattern is unremarkable. Impression: Moderate left hip osteoarthritis. Some diffuse osteopenia. Right hip arthroplasty. Signed by Robert Alvarado MD 07/26/2017 05:04 P
== END ==
LOC: SKLAB8 13:12
PROVIDERS: ATTEND Internal Medicine
DX: R10.30 Lower abdominal pain, unspecified (principal); M16.12 Unilateral primary osteoarthritis, left hip; M85.859 Other specified disorders of bone density and structure, unspecified thigh; Z96.9 Presence of functional implant, unspecified

== ENCOUNTER → 2017-08-11 | Outpatient (REF) | payer MEDICARE, MEDICAID | LOC: SKLAB8 08:00 | PROVIDERS: ATTEND Internal Medicine | DX: R41.82 Altered mental status, unspecified (principal) ==

== ENCOUNTER → 2017-08-19 | Outpatient (REF) | payer MEDICARE, MEDICAID ==
[2017-08-19 09:26] LABS: ANION GAP 4 MEQ/L (8-16); BLOOD UREA NITROGEN 23 MG/DL (7-18); CALCIUM LEVEL 9.9 MG/DL (8.8-10.2); CARBON DIOXIDE LEVEL 32 MEQ/L (21-32); CHLORIDE LEVEL 104 MEQ/L (98-107); CREATININE FOR GFR 0.76 MG/DL (0.55-1.02); GLOMERULAR FILTRATION RATE > 60.0 (>32); GLUCOSE, FASTING 105 MG/DL (83-110); POTASSIUM SERUM 3.9 MEQ/L (3.5-5.1); SODIUM LEVEL 140 MEQ/L (136-145)
== END ==
LOC: SKLAB8 07:00
PROVIDERS: ATTEND Internal Medicine
DX: F03.91 Unspecified dementia, unspecified severity, with behavioral disturbance (principal)

== ENCOUNTER → 2017-09-23 | Outpatient (REF) | payer MEDICARE, MEDICAID ==
[2017-09-23 10:04] LABS: ALBUMIN 3.2 GM/DL (3.2-5.2); ALBUMIN/GLOBULIN RATIO 0.97 (1.00-1.93); ALKALINE PHOSPHATASE 94 U/L (45-117); ALT/SGPT 14 U/L (12-78); ANION GAP 8 MEQ/L (8-16); AST/SGOT 13 U/L (7-37); BILIRUBIN,TOTAL 0.4 MG/DL (0.2-1.0); BLOOD UREA NITROGEN 19 MG/DL (7-18); CALCIUM LEVEL 9.1 MG/DL (8.8-10.2); CARBON DIOXIDE LEVEL 30 MEQ/L (21-32); CHLORIDE LEVEL 104 MEQ/L (98-107); CREATININE FOR GFR 0.71 MG/DL (0.55-1.02); GLOMERULAR FILTRATION RATE > 60.0 (>32); GLUCOSE, FASTING 164 MG/DL (83-110); POTASSIUM SERUM 4.1 MEQ/L (3.5-5.1); SODIUM LEVEL 142 MEQ/L (136-145); TOTAL PROTEIN 6.5 GM/DL (6.4-8.2)
== END ==
LOC: SKLAB8 07:00
PROVIDERS: ATTEND Internal Medicine
DX: R41.82 Altered mental status, unspecified (principal)

== ENCOUNTER → 2017-11-05 | Outpatient (REF) | payer MEDICARE, MEDICAID | LOC: SKLAB8 08:00 | DX: M16.12 Unilateral primary osteoarthritis, left hip (principal) | CPT/HCPCS: 73502 ==

== ENCOUNTER → 2017-11-18 | Outpatient (REF) | payer MEDICARE, MEDICAID ==
[2017-11-18 09:49] LABS: ANION GAP 7 MEQ/L (8-16); BLOOD UREA NITROGEN 27 MG/DL (7-18); CALCIUM LEVEL 9.2 MG/DL (8.8-10.2); CARBON DIOXIDE LEVEL 29 MEQ/L (21-32); CHLORIDE LEVEL 107 MEQ/L (98-107); GLOMERULAR FILTRATION RATE > 60.0 (>32); GLUCOSE, FASTING 104 MG/DL (70-100); POTASSIUM SERUM 4.2 MEQ/L (3.5-5.1); SODIUM LEVEL 143 MEQ/L (136-145)
== END ==
LOC: SKLAB8 07:00
DX: I10 Essential (primary) hypertension (principal)
CPT/HCPCS: 36415

== ENCOUNTER → 2018-01-15 | Outpatient (REF) | payer MEDICARE, MEDICAID | LOC: M RAD 12:46 | DX: M17.12 Unilateral primary osteoarthritis, left knee (principal); R26.9 Unspecified abnormalities of gait and mobility | CPT/HCPCS: 73552 ==

== ENCOUNTER → 2018-04-21 | Outpatient (REF) | payer MEDICARE, MEDICAID ==
[2018-04-21 08:11] LABS: HEMATOCRIT 29.6 % (36.0-47.0); HEMOGLOBIN 9.7 g/dl (12.0-15.5); MEAN CORPUSCULAR HEMOGLOBIN 31.2 pg (27.0-33.0); MEAN CORPUSCULAR HGB CONC 32.8 g/dl (32.0-36.5); MEAN CORPUSCULAR VOLUME 95.2 fl (80.0-96.0); PLATELET COUNT, AUTOMATED 265 10^3/uL (150-450); RED BLOOD COUNT 3.11 10^6/uL (4.00-5.40); RED CELL DISTRIBUTION WIDTH 12.8 % (11.5-14.5); WHITE BLOOD COUNT 6.7 10^3/uL (4.0-10.0)
== END ==
LOC: SKLAB8 07:00
DX: I10 Essential (primary) hypertension (principal)
CPT/HCPCS: 36415

== ENCOUNTER → 2018-04-22 | Outpatient (REF) | payer MEDICARE, MEDICAID | LOC: SKLAB8 08:00 | DX: Z12.11 Encounter for screening for malignant neoplasm of colon (principal) | CPT/HCPCS: 82270 ==

== ENCOUNTER → 2018-04-28 | Outpatient (REF) | payer MEDICARE, MEDICAID ==
[2018-04-28 08:31] LABS: HEMATOCRIT 32.2 % (36.0-47.0); HEMOGLOBIN 10.4 g/dl (12.0-15.5); MEAN CORPUSCULAR HEMOGLOBIN 31.1 pg (27.0-33.0); MEAN CORPUSCULAR HGB CONC 32.3 g/dl (32.0-36.5); MEAN CORPUSCULAR VOLUME 96.4 fl (80.0-96.0); PLATELET COUNT, AUTOMATED 260 10^3/uL (150-450); RED BLOOD COUNT 3.34 10^6/uL (4.00-5.40); RED CELL DISTRIBUTION WIDTH 12.8 % (11.5-14.5); WHITE BLOOD COUNT 7.8 10^3/uL (4.0-10.0)
[2018-04-28 08:53] LABS: IRON (FE) 40 UG/DL (50-170)
== END ==
LOC: SKLAB8 08:00
DX: I10 Essential (primary) hypertension (principal); D64.9 Anemia, unspecified
CPT/HCPCS: 83540

== ENCOUNTER → 2018-05-19 | Outpatient (REF) | payer MEDICARE, MEDICAID ==
[2018-05-19 09:20] LABS: ANION GAP 7 MEQ/L (8-16); BLOOD UREA NITROGEN 39 MG/DL (7-18); CALCIUM LEVEL 9.8 MG/DL (8.8-10.2); CARBON DIOXIDE LEVEL 29 MEQ/L (21-32); CHLORIDE LEVEL 110 MEQ/L (98-107); CREATININE FOR GFR 0.77 MG/DL (0.55-1.30); GLOMERULAR FILTRATION RATE > 60.0 (>32); GLUCOSE, FASTING 82 MG/DL (70-100); POTASSIUM SERUM 3.8 MEQ/L (3.5-5.1); SODIUM LEVEL 146 MEQ/L (136-145)
== END ==
LOC: SKLAB8 08:00
DX: I10 Essential (primary) hypertension (principal)
CPT/HCPCS: 36415

== ENCOUNTER → 2018-09-22 | Outpatient (REF) | payer MEDICARE, MEDICAID ==
[~2018-09-22] MED LIST changes: +ASPI81CH40 PO; -ASPI81TA PO; +LOSA25TA33 PO; -LOSA25TA8 PO; -PROP1TAB29 PO; +PROP20TA72 PO
[2018-09-22 08:08] LABS: ALBUMIN 2.9 GM/DL (3.2-5.2); ALT/SGPT 16 U/L (12-78); BILIRUBIN,TOTAL 0.2 MG/DL (0.2-1.0); BLOOD UREA NITROGEN 28 MG/DL (7-18); CALCIUM LEVEL 9.5 MG/DL (8.8-10.2); CARBON DIOXIDE LEVEL 29 MEQ/L (21-32); CHLORIDE LEVEL 105 MEQ/L (98-107); CREATININE FOR GFR 0.64 MG/DL (0.55-1.30); GLOMERULAR FILTRATION RATE > 60.0 (>32); GLUCOSE, FASTING 91 MG/DL (70-100); POTASSIUM SERUM 4.3 MEQ/L (3.5-5.1); SODIUM LEVEL 141 MEQ/L (136-145); TOTAL PROTEIN 5.8 GM/DL (6.4-8.2)
== END ==
LOC: SKLAB8 07:00
PROVIDERS: ATTEND Internal Medicine
DX: F03.90 Unspecified dementia, unspecified severity, without behavioral disturbance, psychotic disturbance, mood disturbance, and anxiety (principal); I10 Essential (primary) hypertension

== ENCOUNTER → 2018-11-06 | Outpatient (REF) | payer MEDICARE, MEDICAID ==
[~2018-11-06] MED LIST changes: -/WARF25TA PO; +ASPI81CH36 PO; -ASPI81CH40 PO; +COUM1TAB18 PO; +LOSA25TA14 PO; -LOSA25TA33 PO; +SERT-141 PO; -SERT50TA PO; +VITA100018 PO; -VITA100072 PO
[2018-11-14 08:06] LABS: HEMATOCRIT 32.9 % (36.0-47.0); HEMOGLOBIN 10.6 g/dl (12.0-15.5); MEAN CORPUSCULAR HEMOGLOBIN 31.4 pg (27.0-33.0); MEAN CORPUSCULAR HGB CONC 32.2 g/dl (32.0-36.5); MEAN CORPUSCULAR VOLUME 97.3 fl (80.0-96.0); PLATELET COUNT, AUTOMATED 277 10^3/uL (150-450); RED BLOOD COUNT 3.38 10^6/uL (4.00-5.40); WHITE BLOOD COUNT 7.6 10^3/uL (4.0-10.0)
== END ==
LOC: SKLAB8 09:00
PROVIDERS: ATTEND Internal Medicine
DX: D64.9 Anemia, unspecified (principal)

== ENCOUNTER → 2019-04-20 | Outpatient (REF) | payer MEDICARE, MEDICAID ==
[2019-04-20 08:04] LABS: HEMATOCRIT 35.2 % (36.0-47.0); HEMOGLOBIN 11.3 g/dl (12.0-15.5); MEAN CORPUSCULAR HEMOGLOBIN 31.2 pg (27.0-33.0); MEAN CORPUSCULAR HGB CONC 32.1 g/dl (32.0-36.5); MEAN CORPUSCULAR VOLUME 97.2 fl (80.0-96.0); PLATELET COUNT, AUTOMATED 304 10^3/uL (150-450); RED BLOOD COUNT 3.62 10^6/uL (4.00-5.40); WHITE BLOOD COUNT 9.7 10^3/uL (4.0-10.0)
== END ==
LOC: SKLAB8 07:00
PROVIDERS: ATTEND Internal Medicine
DX: I10 Essential (primary) hypertension (principal)

== ENCOUNTER → 2019-04-27 | Outpatient (REF) | payer MEDICARE, MEDICAID | LOC: SKLAB8 07:00 | PROVIDERS: ATTEND Internal Medicine | DX: F03.91 Unspecified dementia, unspecified severity, with behavioral disturbance (principal); I10 Essential (primary) hypertension; Z79.899 Other long term (current) drug therapy ==

== ENCOUNTER → 2019-05-18 | Outpatient (REF) | payer MEDICARE, MEDICAID ==
[~2019-05-18] MED LIST changes: +ASPI81CH32 PO; -ASPI81CH36 PO; +BACT800T5 PO
[2019-05-18 10:16] LABS: BLOOD UREA NITROGEN 23 MG/DL (7-18); CALCIUM LEVEL 9.9 MG/DL (8.8-10.2); CARBON DIOXIDE LEVEL 30 MEQ/L (21-32); CHLORIDE LEVEL 107 MEQ/L (98-107); GLOMERULAR FILTRATION RATE > 60.0 (>32); GLUCOSE, FASTING 92 MG/DL (70-100); SODIUM LEVEL 142 MEQ/L (136-145)
== END ==
LOC: SKLAB8 07:00
PROVIDERS: ATTEND Internal Medicine
DX: I10 Essential (primary) hypertension (principal)

== ENCOUNTER 2019-06-05 16:12 | Emergency (ER) | payer MEDICARE, MEDICAID ==
[~2019-06-05] VITALS: Ht 182.9 cm; Wt 129.6 kg
[~2019-06-05 16:12] MED LIST changes: -BACT800T5 PO
[2019-06-05] MEDS ORDERED: LIDOCAINE 2% 5ML JELLY UROJET TOP ONE (16:45)
--- NOTE | 2019-06-05 17:02 | REP ---
Clinical: Facial droop. Comparison: 11/16/2016 Findings: Age-related atrophy and microvascular ischemic changes are appreciated. The ventricles and sulci are symmetric. Chan-white differentiation is maintained. There is no evidence for acute intracranial hemorrhage, mass/mass effect, pathology or infarction. No extra-axial fluid collection. Calvarium is intact. Paranasal sinuses and mastoid air cells are clear. Impression: Age related atrophy and microvascular ischemic changes. No acute intracranial hemorrhage, infarction, or mass/mass effect. Electronically Signed by Jae Juares MD 06/05/2019 04:53 P
--- NOTE | 2019-06-05 17:20 | REP ---
Clinical: Acute cerebrovascular accident . Comparison: 07/07/2017 . Findings: The mediastinum and cardiac silhouette are stable and within normal limits for portable technique. The lung alan demonstrate chronic-appearing interstitial changes without acute consolidation, effusion, or pneumothorax. Skeletal structures demonstrate osteopenia and degenerative change. Impression: No acute cardiopulmonary process appreciated. Electronically Signed by Jae Juares MD 06/05/2019 05:12 P
[2019-06-05 17:37] LABS: BASO # 0.1 10^3/uL (0.0-0.2); BASO % 0.8 % (0.0-1.0); EOS # 0.4 10^3/uL (0.0-0.5); EOS % 4.2 % (0.0-3.0); HEMATOCRIT 34.1 % (36.0-47.0); LYMPH # 2.2 10^3/uL (1.5-5.0); LYMPH % 25.8 % (24.0-44.0); MEAN CORPUSCULAR HEMOGLOBIN 32.3 pg (27.0-33.0); MEAN CORPUSCULAR HGB CONC 32.3 g/dl (32.0-36.5); MONO # 1.4 10^3/uL (0.0-0.8); MONO % 16.4 % (0.0-5.0); NEUTROPHILS # 4.6 10^3/uL (1.5-8.5); NEUTROPHILS % 52.6 % (36.0-66.0); PLATELET COUNT, AUTOMATED 320 10^3/uL (150-450); RED BLOOD COUNT 3.41 10^6/uL (4.00-5.40); WHITE BLOOD COUNT 8.7 10^3/uL (4.0-10.0)
[2019-06-05 17:53] LABS: INR 1.08; PROTHROMBIN TIME 13.7 SECONDS (11.8-14.0)
[2019-06-05 18:11] LABS: ALT/SGPT 18 U/L (12-78); BILIRUBIN,DIRECT < 0.1 MG/DL (0.0-0.2); BILIRUBIN,TOTAL 0.2 MG/DL (0.2-1.0); BLOOD UREA NITROGEN 32 MG/DL (7-18); CALCIUM LEVEL 9.9 MG/DL (8.8-10.2); CARBON DIOXIDE LEVEL 29 MEQ/L (21-32); CHLORIDE LEVEL 107 MEQ/L (98-107); CK-MB VALUE MASS 1.3 NG/ML (<3.6); CPK CREATINE PHOSPHOKINASE 38 U/L (26-192); CREATININE FOR GFR 0.78 MG/DL (0.55-1.30); GLOMERULAR FILTRATION RATE > 60.0 (>32); GLUCOSE, FASTING 109 MG/DL (70-100); MB/CK RELATIVE INDEX 3.42 (< OR =4); POTASSIUM SERUM 4.4 MEQ/L (3.5-5.1); SODIUM LEVEL 141 MEQ/L (136-145); TOTAL PROTEIN 6.2 GM/DL (6.4-8.2); TROPONIN I < 0.02 NG/ML (< 0.10)
[2019-06-05 18:35] LABS: APPEARANCE, URINE MANUAL TURBID (CLEAR); COLOR, URINE MANUAL YELLOW (YELLOW)
[2019-06-05 18:36] LABS: BILIRUBIN, URINE MANUAL NEGATIVE (NEGATIVE); BLOOD URINE MANUAL POSITIVE (NEGATIVE); GLUCOSE, URINE (UA) MANUAL NEGATIVE (NEGATIVE); KETONE, URINE MANUAL NEGATIVE (NEGATIVE); LEUKOCYTE ESTERASE, URINE MAN POSITIVE (NEGATIVE); NITRITE, URINE MANUAL NEGATIVE (NEGATIVE); PROTEIN, URINE MANUAL 1+ mg/dL (NEGATIVE); SPECIFIC GRAVITY,URINE MANUAL 1.025 (1.002-1.035); UROBILINOGEN, URINE MANUAL NORMAL (NORMAL)
[2019-06-05 18:40] LABS: WBC, URINE TNTC /hpf (0-3)
[2019-06-05 18:41] LABS: RBC, URINE TNTC /hpf (0-3); SQUAMOUS EPITHELIAL CELL URINE SMALL AMOUNT /hpf (SMALL AMT)
[2019-06-05 18:42] LABS: BACTERIA, URINE LARGE AMOUNT; HYALINE CAST, URINE NONE SEEN /lpf (0-1)
[2019-06-05] MEDS ORDERED: BACT800T5 PO (18:50)
[2019-06-05] MEDS ORDERED: BACTRIM 160MG/800MG DS TAB PO ONE (19:00)
[2019-06-05 19:45] VITALS: BP 143/63
--- NOTE | 2019-06-06 00:50 | ECGEPIP ---
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
== END 2019-06-05 20:03 | disposition home or self-care (01) ==
LOC: M ED 16:12
DX: N39.0 Urinary tract infection, site not specified (principal); R29.810 Facial weakness; E11.9 Type 2 diabetes mellitus without complications; I10 Essential (primary) hypertension; F03.90 Unspecified dementia, unspecified severity, without behavioral disturbance, psychotic disturbance, mood disturbance, and anxiety; F41.9 Anxiety disorder, unspecified; Z79.899 Other long term (current) drug therapy; Z88.8 Allergy status to other drugs, medicaments and biological substances

== ENCOUNTER → 2019-06-05 | Outpatient (REF) | payer MEDICARE, MEDICAID ==
[~2019-06-05] MED LIST changes: -ASPI81CH32 PO; +ASPI81CH36 PO
[2019-06-05 15:15] LABS: HEMATOCRIT 34.5 % (36.0-47.0); HEMOGLOBIN 11.3 g/dl (12.0-15.5); MEAN CORPUSCULAR HEMOGLOBIN 32.5 pg (27.0-33.0); MEAN CORPUSCULAR HGB CONC 32.8 g/dl (32.0-36.5); MEAN CORPUSCULAR VOLUME 99.1 fl (80.0-96.0); PLATELET COUNT, AUTOMATED 357 10^3/uL (150-450); RED BLOOD COUNT 3.48 10^6/uL (4.00-5.40); WHITE BLOOD COUNT 9.1 10^3/uL (4.0-10.0)
[2019-06-05 15:29] LABS: BLOOD UREA NITROGEN 29 MG/DL (7-18); CALCIUM LEVEL 9.8 MG/DL (8.8-10.2); CARBON DIOXIDE LEVEL 23 MEQ/L (21-32); CHLORIDE LEVEL 108 MEQ/L (98-107); CREATININE FOR GFR 0.82 MG/DL (0.55-1.30); GLOMERULAR FILTRATION RATE > 60.0 (>32); GLUCOSE, FASTING 201 MG/DL (70-100); POTASSIUM SERUM 3.6 MEQ/L (3.5-5.1); SODIUM LEVEL 138 MEQ/L (136-145)
== END ==
LOC: SKLAB8 07:00
DX: Z79.899 Other long term (current) drug therapy (principal)

== ENCOUNTER → 2019-07-04 | Outpatient (REF) | payer MEDICARE, MEDICAID ==
[~2019-07-04] MED LIST changes: +BACT800T5 PO
[2019-07-04 15:18] LABS: HEMATOCRIT 32.8 % (36.0-47.0); HEMOGLOBIN 10.3 g/dl (12.0-15.5); MEAN CORPUSCULAR HEMOGLOBIN 31.1 pg (27.0-33.0); MEAN CORPUSCULAR HGB CONC 31.4 g/dl (32.0-36.5); MEAN CORPUSCULAR VOLUME 99.1 fl (80.0-96.0); PLATELET COUNT, AUTOMATED 370 10^3/uL (150-450); RED BLOOD COUNT 3.31 10^6/uL (4.00-5.40); WHITE BLOOD COUNT 12.9 10^3/uL (4.0-10.0)
--- NOTE | 2019-07-04 16:45 | REP ---
CHEST, PORTABLE: AP portable view of the chest is performed and compared to prior study of 06/05/2019 as well as other priors exams. No acute infiltrate is seen. Heart is not enlarged. Mediastinal silhouette is unchanged. There are degenerative changes of the spine. IMPRESSION: No acute infiltrate. Electronically Signed by Jose Luis Chan MD 07/05/2019 04:31 P
== END ==
LOC: SKLAB8 07:00
PROVIDERS: ATTEND Internal Medicine
DX: R09.81 Nasal congestion (principal); R05 Cough